=== PATIENT | female | born 2000 | race Caucasian/White ===

== ENCOUNTER 2022-11-13 11:15 | Day surgery (SDC) | payer BC, SELFPAY ==
[2022-11-13] MEDS ORDERED: Sodium Chloride 0.9% 100 ML ONE (11:43)
[2022-11-13] MEDS ORDERED: Morphine 2 MG/ML VIAL ONE ×3 (11:43→14:30)
[2022-11-13] MEDS ORDERED: cefOXitin 2 GM VIAL ONE (11:43)
[2022-11-13] MEDS ORDERED: Midazolam HCl 2 mg/2 ml Vial ONE (11:44)
[2022-11-13] MEDS ORDERED: Bupivacaine/Epinephrine 0.25% 30 ML VIAL ONE (12:12)
[2022-11-13] MEDS ORDERED: Dexmedetomidine 200 MCG/2 ML VIAL ONE (12:13)
[2022-11-13] MEDS ORDERED: Fentanyl 250 MCG/5 ML VIAL ONE (12:13)
[2022-11-13] MEDS ORDERED: Ondansetron PF 4 MG/2 ML Vial ONE (12:30)
[2022-11-13] MEDS ORDERED: Ketorolac Tromethamine 30 MG/ML VIAL ONE (12:30)
[2022-11-13] MEDS ORDERED: Lidocaine 1% PF 5 ML VIAL ONE (12:30)
[2022-11-13] MEDS ORDERED: Dexamethasone 20 MG/5 ML VIAL ONE (12:30)
[2022-11-13] MEDS ORDERED: PROPOFOL 200 MG/20 ML VIAL ONE (12:30)
[2022-11-13] MEDS ORDERED: Rocuronium Bromide 10 MG/ML (10ML VIAL) ONE (12:30)
[2022-11-13] MEDS ORDERED: HYDROcodone/Acetaminophen 5/325 mg Tablet ONE (14:14)
== END 2022-11-13 15:35 | disposition home or self-care (01) ==
LOC: SDC 11:15
PROVIDERS: ATTEND Surgery
PROC: 0FT44ZZ Resection of Gallbladder, Percutaneous Endoscopic Approach (ICD-10-PCS; principal; 2022-11-13)
DX: K80.12 Calculus of gallbladder with acute and chronic cholecystitis without obstruction (principal)
CPT/HCPCS: 88304; C1889; J0694; J2250; J2272; J3010; J3490